=== PATIENT | male | born 1975 | race Caucasian/White ===

== ENCOUNTER 2017-12-09 15:06 | Outpatient (CLI) | payer BC ==
--- NOTE | 2017-12-09 16:17 | ULT ---
RENAL ULTRASOUND: History: Evaluate for renal mass. Comparison: 05-17-14 Technique: Sagittal and transverse imaging of the kidneys performed. FINDINGS: Right kidney: There is significant renal cortical thinning. No hydronephrosis. Right kidney measures 5.2 x 12.0 x 4 .4 cm. There is an echogenic focus in the right renal cortex measuring 0.9 x 0.9 x 1.1 cm. Left kidney: There is significant renal cortical thinning. No hydronephrosis. Left kidney measures 6.1 x 11.8 x 5. 7 cm. There is an echogenic focus in the mid portion left kidney measuring 0.7 x 0.8 x 0.7 cm. Decompression of the urinary bladder due to Augustin catheterization. IMPRESSION: 1. Bilateral renal cortical thinning. 2. No hydronephrosis. 3. Echogenic foci in both renal cortices. 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 POS: [id number]
== END 2017-12-09 15:07 | disposition home or self-care (01) ==
LOC: SCSULT 15:06
PROVIDERS: ATTEND Urology
DX: N28.89 Other specified disorders of kidney and ureter (principal)
CPT/HCPCS: 76770

== ENCOUNTER 2018-11-07 07:54 | Outpatient (CLI) | payer BC ==
--- NOTE | 2018-11-07 09:38 | CT ---
CT abdomen and pelvis with and without IV contrast HISTORY: Renal mass. Bladder stones. Suprapubic catheter. COMPARISON: 04/29/2016. Renal sonogram 12/09/2017. FINDINGS: Nodular scarring at the lung bases. Each renal collecting system, ureter, and urinary bladd er are decompressed. No filling defects are apparent within the renal collecting systems on the delayed images. The hyperdense stones in the urinary bladder on the previous study are subtly seen as filling defects on the axial delayed images within the urinary bladder. Suprapubic catheter remains in place. Postoperative changes right lower quadrant anterior abdominal wall. Degenerative changes lumbar spine . No renal masses are visible. Minimal calcification in the arterial structures. IMPRESSION: Small urinary bladder calculi appears stable. Suprapubic catheter in place. No evidence of renal mass or stones.
[2018-11-07] MEDS ORDERED: Iopamidol 370 76% 100 ML VIAL ONE (13:39)
== END 2018-11-07 07:55 | disposition home or self-care (01) ==
LOC: CT 07:54
PROVIDERS: ATTEND Urology
DX: N28.89 Other specified disorders of kidney and ureter (principal); N21.0 Calculus in bladder
CPT/HCPCS: 74170; Q9967

== ENCOUNTER 2020-10-29 17:25 | Outpatient (CLI) | payer BC ==
[2020-10-29 17:52] LABS: Hemoglobin 13.8 g/dL (13.5-17.5); Mean Corpuscular HGB CONC 32.9 g/dL (32.0-36.0); Mean Corpuscular Hemoglobin 29.7 pg (27.0-33.0); Mean Corpuscular Volume 90.3 fl (81.2-95.1); Mean Platelet Volume 10.3 fl (7.4-10.4); Platelet Count 221 10x3/uL (150-450); RBC Distribution Width 13.8 % (11.5-14.5); Red Blood Cell (RBC) Count 4.64 10x6/uL (4.32-5.72)
[2020-10-29 18:09] LABS: Prothrombin Time 10.9 sec (9.5-12.1)
[2020-10-29 18:34] LABS: Anion Gap 14 mmol/L (10-20); BUN (Urea Nitrogen) 15 mg/dL (8.9-20.6); Calc. Creatinine Clearance 0 mL/min (70-130); Calcium 9.6 mg/dL (7.8-10.44); Carbon Dioxide 24 mmol/L (22-29); Chloride 102 mmol/L (98-107); Glucose 84 mg/dL (70-105); Sodium 136 mmol/L (136-145)
== END 2020-10-29 17:26 | disposition home or self-care (01) ==
LOC: LABBT 17:25
PROVIDERS: ATTEND Internal Medicine Cardiovascular Disease
DX: Z01.812 Encounter for preprocedural laboratory examination (principal); Z20.822 Contact with and (suspected) exposure to COVID-19
CPT/HCPCS: 80048; 85027; 85610

== ENCOUNTER 2020-10-31 06:13 | Day surgery (SDC) | payer BC ==
[2020-10-30 12:24] VITALS: BMI 23.7
[2020-10-31] MEDS ORDERED: Heparin 25,000 units/D5W 500 ML ONE (06:48)
[2020-10-31] MEDS ORDERED: Heparin 10,000 UNITS/ 10 ML VIAL ONE ×2 (06:48→08:47)
[2020-10-31] MEDS ORDERED: Fentanyl 100 MCG/2 ML VIAL ONE (07:01)
[2020-10-31] MEDS ORDERED: Midazolam HCl 2 mg/2 ml Vial ONE (07:02)
[2020-10-31] MEDS ORDERED: Rocuronium Bromide 10 MG/ML (10ML VIAL) ONE (07:21)
[2020-10-31] MEDS ORDERED: PROPOFOL 200 MG/20 ML VIAL ONE (07:21)
[2020-10-31] MEDS ORDERED: ePHEDrine Sulfate 50 MG/10 ML VIAL ONE (07:21)
[2020-10-31] MEDS ORDERED: Dexamethasone 20 MG/5 ML VIAL ONE (07:21)
[2020-10-31] MEDS ORDERED: PHENYLEPHRINE-NS 100 MCG/ML 10 ML SYRINGE ONE (07:21)
[2020-10-31] MEDS ORDERED: Glycopyrrolate 0.2 MG/ML 5 ML SYRINGE ONE (07:21)
[2020-10-31] MEDS ORDERED: Lidocaine 1% PF 5 ML VIAL ONE (07:21)
[2020-10-31] MEDS ORDERED: Isoproterenol 0.2 MG/1 ML AMP ONE (08:22)
[2020-10-31] MEDS ORDERED: Protamine Sulfate 50 MG/5 ML VIAL ONE (10:28)
== END 2020-10-31 15:23 | disposition home or self-care (01) ==
LOC: CCL 06:13
PROVIDERS: ATTEND Internal Medicine Cardiovascular Disease
PROC: 4A0234Z Measurement of Cardiac Electrical Activity, Percutaneous Approach (ICD-10-PCS; principal; 2020-10-31)
PROC: 02K83ZZ Map Conduction Mechanism, Percutaneous Approach (ICD-10-PCS; principal; 2020-10-31)
PROC: 4A023FZ Measurement of Cardiac Rhythm, Percutaneous Approach (ICD-10-PCS; principal; 2020-10-31)
PROC: B24BZZ4 Ultrasonography of Heart with Aorta, Transesophageal (ICD-10-PCS; principal; 2020-10-31)
PROC: 02583ZZ Destruction of Conduction Mechanism, Percutaneous Approach (ICD-10-PCS; principal; 2020-10-31)
DX: I48.0 Paroxysmal atrial fibrillation (principal); I47.1 Supraventricular tachycardia; I48.3 Typical atrial flutter; I48.4 Atypical atrial flutter; N31.9 Neuromuscular dysfunction of bladder, unspecified; G82.50 Quadriplegia, unspecified; Z79.01 Long term (current) use of anticoagulants; Z79.899 Other long term (current) drug therapy; Z88.5 Allergy status to narcotic agent; Z98.1 Arthrodesis status
CPT/HCPCS: 76942; 85347; 92960; 93005; 93312; 93613; 93623; 93655; 93656; 93657; 93662; C1730; C1731; C1732; C1894; C2630; J1100; J1644; J2250; J2704; J2720; J3010

== ENCOUNTER 2021-09-11 13:54 | Outpatient (CLI) | payer BC | END 2021-09-11 13:55 | disposition home or self-care (01) | LOC: TBSIIMAG 13:54 | PROVIDERS: ATTEND Nurse Practitioner Family | DX: L89.40 Pressure ulcer of contiguous site of back, buttock and hip, unspecified stage (principal); M86.9 Osteomyelitis, unspecified; M60.9 Myositis, unspecified | CPT/HCPCS: 72197 ==

== ENCOUNTER 2021-12-18 06:14 | Day surgery (SDC) | payer BC ==
[2021-12-17 09:51] VITALS: BMI 22.4
[2021-12-18 06:55] LABS: Hemoglobin 12.4 g/dL (14.0-18.0); Mean Corpuscular HGB CONC 32.8 g/dL (32.0-36.0); Mean Corpuscular Hemoglobin 30.1 pg (27.0-31.0); Mean Corpuscular Volume 91.8 fL (78.0-98.0); Mean Platelet Volume 8.1 fL (7.4-10.4); Platelet Count 225 thou/uL (130-400); RBC Distribution Width 14.4 % (11.5-14.5); Red Blood Cell (RBC) Count 4.12 mill/uL (4.70-6.10); White Blood Cell (WBC) Count 6.1 thou/uL (4.8-10.8)
[2021-12-18 07:13] LABS: Anion Gap 12 mmol/L (10-20); BUN (Urea Nitrogen) 14 mg/dL (8.9-20.6); Calc. Creatinine Clearance 163 mL/min (70-130); Calcium 9.1 mg/dL (7.8-10.44); Carbon Dioxide 25 mmol/L (22-29); Chloride 106 mmol/L (98-107); Estimated GFR 119; Glucose 96 mg/dL (70-105); Potassium 4.2 mmol/L (3.5-5.1); Sodium 139 mmol/L (136-145)
[2021-12-18 07:20] LABS: Prothrombin Time 13.2 sec (12.0-14.7)
[2021-12-18 07:21] LABS: PTT 34.4 sec (22.9-36.1)
[2021-12-18] MEDS ORDERED: Bupivacaine 0.25% HCL 30 ML VIAL ONE (07:38)
[2021-12-18] MEDS ORDERED: Lidocaine 1% MPF 2 ML VIAL ONE ×3 (07:41→07:42)
== END 2021-12-18 08:29 | disposition home or self-care (01) ==
LOC: CCL 06:14
PROVIDERS: ATTEND Internal Medicine Cardiovascular Disease
PROC: 0JH632Z Insertion of Monitoring Device into Chest Subcutaneous Tissue and Fascia, Percutaneous Approach (ICD-10-PCS; principal; 2021-12-18)
DX: I48.0 Paroxysmal atrial fibrillation (principal); I48.4 Atypical atrial flutter; I48.3 Typical atrial flutter; I47.1 Supraventricular tachycardia; R00.1 Bradycardia, unspecified; G82.50 Quadriplegia, unspecified; Z79.899 Other long term (current) drug therapy; Z88.5 Allergy status to narcotic agent; Z98.1 Arthrodesis status
CPT/HCPCS: 33285; 36415; 80048; 85027; 85610; 85730; S0020

== ENCOUNTER 2025-04-24 16:16 | Outpatient (CLI) | payer BC | END 2025-04-24 16:17 | disposition home or self-care (01) | LOC: SCSRAD 16:16 | PROVIDERS: ATTEND Family Medicine | DX: S99.921A Unspecified injury of right foot, initial encounter (principal); M85.871 Other specified disorders of bone density and structure, right ankle and foot ==